=== PATIENT | female | born 1945 | race Caucasian/White ===

== ENCOUNTER → 2019-07-21 | Day surgery (SDC) | payer OTHER ==
[~2019-07-21] MED LIST: AMILODIPINE PO; AMOX-CLAV 875-1 EACH; COLACE100 MG PO; LIPITOR20 MG; LIPITOR20 MG PO; NEURONTIN300 MG PO; OMEPRAZOLE20 MG; OMEPRAZOLE20 MG PO; PERCOCET 5-3251 EACH PO; TOPROL XL50 M1 PO; TOPROL XL50 MG
== END | disposition home or self-care (01) ==
LOC: ADM 07-14 10:00 → CIR.AMB 09:04
DX: K43.0 Incisional hernia with obstruction, without gangrene (principal)